=== PATIENT | male | born 1950 ===

== ENCOUNTER 2018-04-15 04:22 | Emergency (ER) | payer SELFPAY ==
[2018-04-15] MEDS ORDERED: Albuterol-Ipratrop 3 mg / 0.5 (3 ml) UD ONE ×2 (04:37→06:43)
[2018-04-15 04:55] VITALS: RESP 18
[2018-04-15] MEDS ORDERED: Magnesium Sulfate 2 gm/50 ml 2 GM/50 ML BAG ONE (05:13)
[2018-04-15] MEDS ORDERED: Albuterol-Ipratrop 3 mg / 0.5 (3 ml) UD INH STA ×4 (05:32→06:30)
[2018-04-15] MEDS ORDERED: Magnesium Sulfate 2 gm/50 ml 2 GM/50 ML BAG IVPB ONE (05:32)
[2018-04-15 05:53] LABS: VENOUS BLOOD GAS BASE EXCESS 2.5 mmol/L (0.0-2.0); VENOUS BLOOD GAS PCO2 45 mmHg (40-60); VENOUS BLOOD GAS PO2 55 mm/Hg (30-55)
[2018-04-15 05:54] LABS: BASO # 0.1 K/uL (0.0-0.2); BASO % 0.6 % (0.0-2.0); EOS # 0.1 K/uL (0.0-0.7); HEMOGLOBIN 13.9 g/dL (12.0-18.0); LYMPH # 6.6 K/uL (1.0-4.3); LYMPH % 62.1 % (20.0-40.0); MEAN CELL VOLUME 90.2 fl (80.0-94.0); MEAN CORPUSCULAR HEMOGLOBIN 30.6 pg (27.0-31.0); MEAN CORPUSCULAR HGB CONC 33.9 g/dL (33.0-37.0); MEAN PLATELET VOLUME 7.5 fl (7.2-11.7); MONO # 0.5 K/uL (0.0-0.8); MONO % 4.5 % (0.0-10.0); NEUT # 3.4 K/uL (1.8-7.0); NEUT % 31.8 % (50.0-75.0); NRBC % 0.1 % (0.0-0.0); RBC 4.54 Mil/uL (4.40-5.90); RED CELL DISTRIBUTION WIDTH 14.4 % (11.5-14.5); WHITE BLOOD COUNT 10.7 K/uL (4.8-10.8)
[2018-04-15 06:02] LABS: BLOOD UREA NITROGEN 15 mg/dl (9-20); CALCIUM 9.2 mg/dL (8.4-10.2); GFR NON-AFRICAN AMERICAN > 60
--- NOTE | 2018-04-15 06:38 | ED PDOC ---
HPI: SOB/CHF/COPD Time Seen by Provider: 04/15/18 04:31 Chief Complaint (Nursing): Shortness Of Breath Chief Complaint (Provider): Shortness Of Breath History Per: Patient History/Exam Limitations: no limitations Onset/Duration Of Symptoms: Days Current Symptoms Are (Timing): Still Present Additional Complaint(s): 68 y/o male with a PMHx of Asthma and HTN for evaluation of dyspnea and shortness of breath, onset earlier this evening. Patient reports symptoms are consistent with his asthma. Patient report he has been taking his Ventolin Inhaler with no relief. Patient is unsure of trigger. PMD: None Provided Past Medical History Reviewed: Historical Data, Nursing Documentation, Vital Signs Vital Signs: Last Vital Signs Temp 98.2 F 04/15/18 04:49 Pulse 83 04/15/18 04:49 Resp 18 04/15/18 05:19 BP 172/81 H 04/15/18 04:49 Pulse Ox 98 04/15/18 04:49 - Medical History PMH: Asthma, HTN Denies: Chronic Kidney Disease - Surgical History Surgical History: No Surg Hx - Family History Family History: States: Unknown Family Hx - Home Medications Home Medications: Ambulatory Orders Medication Instructions Recorded Albuterol HFA [Ventolin HFA 90 2 puff IH Q4H PRN 04/08/15 mcg/actuation (8 g)] Albuterol Sulfate [Albuterol 3 ml IH Q6H PRN 04/08/15 Sulfate 2.5mg/3 ml 0.083%] Multivitamin/Iron/Folic Acid 1 tab PO DAILY 04/08/15 [Centrum Complete Multivit Tab] predniSONE [predniSONE Tab] 60 mg PO DAILY #9 tab 04/15/18 - Allergies Allergies/Adverse Reactions: Allergies Allergy/AdvReac Type Severity Reaction Status Date / Time acetaminophen [From Percocet] AdvReac SHORTNESS Verified 04/15/18 05:29 OF BREATH oxycodone [From Percocet] AdvReac SHORTNESS Verified 04/15/18 05:29 OF BREATH Review of Systems ROS Statement: Except As Marked, All Systems Reviewed And Found Negative Respiratory: Positive for: Shortness of Breath, Other (Dyspnea) Physical Exam - Reviewed Nursing Documentation Reviewed: Yes Vital Signs Reviewed: Yes - Physical Exam Appears: Positive for: No Acute Distress Head Exam: Positive for: ATRAUMATIC, NORMOCEPHALIC Skin: Positive for: Normal Color, Warm, Dry Eye Exam: Positive for: Normal appearance, EOMI, PERRL Neck: Positive for: Normal, Painless ROM Cardiovascular/Chest: Positive for: Regular Rate, Rhythm. Negative for: Murmur Respiratory: Positive for: Accessory Muscle Use, Wheezing (BILATERALLY). Negative for: Respiratory Distress Gastrointestinal/Abdominal: Positive for: Normal Exam, Soft. Negative for: Tenderness Back: Positive for: Normal Inspection. Negative for: L CVA Tenderness, R CVA Tenderness Extremity: Positive for: Normal ROM. Negative for: Pedal Edema, Deformity Neurologic/Psych: Positive for: Alert, Oriented. Negative for: Motor/Sensory Deficits - Laboratory Results Result Diagrams: 04/15/18 05:43 04/15/18 05:43 - ECG O2 Sat by Pulse Oximetry: 98 (RA) Pulse Ox Interpretation: Normal Medical Decision Making Medical Decision Making: Time: 0550 A/P: 68 y/o male presenting with moderate asthma exacerbation -- VBG -- BMP -- CBC with Differentials -- CXR Portable -- Duoneb 3mg/0.5mg (3 ml) UD 3 ml INH -- Duoneb 3mg/0.5mg (3 ml) UD 3 ml INH -- Duoneb 3mg/0.5mg (3 ml) UD 3 ml INH -- Magnesium Sulfate 2 gm in 50 ml IVPB -- SOLU-Medrol 125 mg IVP -- Peak Flow Pre/Post Tx Time: 0630 -- Duoneb 3mg/0.5mg (3 ml) UD 3 ml INH -- Peak Flow Pre/Post Tx -- On re-evaluation, patient reports symptoms significantly improved. No longer wheezing, walking without SOB or difficulty, very well appearing. Advised to followup with Dr. Burk as soon as possible. Scribe Attestation: Documented by Aissatou Valles, acting as a scribe for Golden Crocker MD. Provider Scribe Attestation: All medical record entries made by the Scribe were at my direction and personally dictated by me. I have reviewed the chart and agree that the record accurately reflects my personal performance of the history, physical exam, medical decision making, and the department course for this patient. I have also personally directed, reviewed, and agree with the discharge instructions and disposition. Disposition - Clinical Impression Clinical Impression: Asthma - Disposition Referrals: Gracy Laura MD [Family Provider] - Disposition: Routine/Home Disposition Time: 07:00 Condition: STABLE Prescriptions: predniSONE [predniSONE Tab] 60 mg PO DAILY #9 tab Instructions: Asthma, Adult (DC) Forms: [facility] (Khmer)
[2018-04-15 07:22] VITALS: BP 160/72; PULSE 80; TEMP 98
--- NOTE | 2018-04-15 08:18 | RAD ---
Date of service: 04/15/2018 HISTORY: asthma exacerbatoin COMPARISON: No prior. FINDINGS: LUNGS: No active pulmonary disease. PLEURA: No significant pleural effusion identified, no pneumothorax apparent. CARDIOVASCULAR: Heart is enlarged but unchanged in size. Aorta is also stable in size. OSSEOUS STRUCTURES: No significant abnormalities. VISUALIZED UPPER ABDOMEN: Normal. OTHER FINDINGS: None. IMPRESSION: No active disease.
[2018-04-16 01:52] VITALS: O2SAT 98
== END 2018-04-15 07:22 | disposition home or self-care (01) ==
LOC: H.ER 04:22
DX: J45.901 Unspecified asthma with (acute) exacerbation (principal); I10 Essential (primary) hypertension; Z88.5 Allergy status to narcotic agent; J44.9 Chronic obstructive pulmonary disease, unspecified
CPT/HCPCS: 71045; 80048; 82803; 85025; 96374; 99284; J2930

== ENCOUNTER 2018-04-16 11:57 | Inpatient (IN) | payer OTHER ==
[2018-04-16 12:02] VITALS: BMI 23.0
[2018-04-16] MEDS ORDERED: Magnesium Sulfate 1 GM in Dextrose 5% In Water 100 ML IV STA (12:27)
[2018-04-16] MEDS ORDERED: Albuterol 0.083% Inhal Sol (2.5 mg/3 mL) UD INH STA (12:27)
--- NOTE | 2018-04-16 12:31 | CARD ---
APPROVED REPORT Date of service: 04/15/2018 EKG Measurement Heart [id number] <Conclusion> Normal sinus rhythm Possible Left atrial enlargement Left ventricular hypertrophy Abnormal ECG
[2018-04-16 12:56] LABS: ABG ALLEN TEST YES; ARTERIAL BLOOD GAS HCO3 26.1 mmol/L (21-28); ARTERIAL BLOOD GAS HEMOGLOBIN 14.7 g/dL (11.7-17.4); ARTERIAL BLOOD GAS O2 CAPACITY 19.5 mL/dL (16-24); ARTERIAL BLOOD GAS O2 CONTENT 19.3 ML/dL (15-23); ARTERIAL BLOOD GAS O2 SAT 98.8 % (95-98); ARTERIAL BLOOD GAS PCO2 39 mm/Hg (35-45); ARTERIAL BLOOD GAS PH 7.43 (7.35-7.45); ARTERIAL BLOOD GAS PO2 75 mm/Hg (80-100); ARTERIAL BLOOD GAS TCO2 27.1 mmol/L (22-28)
--- NOTE | 2018-04-16 12:56 | RAD ---
Date of service: 04/16/2018 PROCEDURE: CHEST RADIOGRAPH, 1 VIEW HISTORY: dyspnea COMPARISON: 04/15/2014. FINDINGS: LUNGS: Clear. PLEURA: No pneumothorax or pleural fluid seen. CARDIOVASCULAR: Cardiomegaly. No evidence of acute, significant cardiovascular disease. OSSEOUS STRUCTURES: No significant abnormalities. VISUALIZED UPPER ABDOMEN: Normal. OTHER FINDINGS: None. IMPRESSION: No active disease. No acute/significant interval changes.
--- NOTE | 2018-04-16 12:58 | ED PDOC ---
HPI: SOB/CHF/COPD Time Seen by Provider: 04/16/18 12:11 Chief Complaint (Nursing): Respiratory Distress Chief Complaint (Provider): Respiratory Distress History Per: Patient History/Exam Limitations: no limitations Onset/Duration Of Symptoms: Days (1) Associated Symptoms: Chest Pain. denies: Fever Additional Complaint(s): 68 years old male with history of asthma presents to ER for evaluation of difficulty breathing associated with cough, chest discomfort and wheezing onset last night. Patient reports he used his nebulizer over 10 times since last night without improvement. He states he was seen here last week for the same complaint and was discharge with nebulizers. Patient reports improvement after his last visit but symptoms returned last nights. He denies experiencing fever, nausea, vomiting or being admitted before for asthma. PMD: Aminah Burk Past Medical History Reviewed: Historical Data, Nursing Documentation, Vital Signs Vital Signs: Last Vital Signs Temp 98.7 F 04/16/18 12:02 Pulse 89 04/16/18 12:02 Resp 18 04/16/18 12:02 BP 154/91 H 04/16/18 12:02 Pulse Ox 99 04/16/18 12:02 - Medical History PMH: Asthma, HTN Denies: Chronic Kidney Disease Other PMH: Colon cancer (many years ago) - Surgical History Other surgeries: Colon surgery - Family History Family History: States: Unknown Family Hx - Social History Current smoker - smoking cessation education provided: No Alcohol: Social Drugs: Denies - Home Medications Home Medications: Ambulatory Orders Medication Instructions Recorded RX: Albuterol HFA [Ventolin HFA 90 2 puff IH Q4H PRN 04/08/15 mcg/actuation (8 g)] RX: Albuterol Sulfate [Albuterol 3 ml IH Q6H PRN 04/08/15 Sulfate 2.5mg/3 ml 0.083%] RX: Multivitamin/Iron/Folic Acid 1 tab PO DAILY 04/08/15 [Centrum Complete Multivit Tab] RX: predniSONE [predniSONE Tab] 60 mg PO DAILY #9 tab 04/15/18 - Allergies Allergies/Adverse Reactions: Allergies Allergy/AdvReac Type Severity Reaction Status Date / Time acetaminophen [From Percocet] AdvReac SHORTNESS Verified 04/15/18 05:29 OF BREATH oxycodone [From Percocet] AdvReac SHORTNESS Verified 04/15/18 05:29 OF BREATH Review of Systems ROS Statement: Except As Marked, All Systems Reviewed And Found Negative Constitutional: Negative for: Fever Cardiovascular: Positive for: Chest Pain Respiratory: Positive for: Cough (dry), Shortness of Breath Gastrointestinal: Negative for: Nausea, Vomiting Physical Exam - Reviewed Nursing Documentation Reviewed: Yes Vital Signs Reviewed: Yes - Physical Exam Appears: Positive for: Non-toxic, No Acute Distress Head Exam: Positive for: ATRAUMATIC, NORMOCEPHALIC Skin: Positive for: Warm, Dry Eye Exam: Positive for: EOMI Cardiovascular/Chest: Positive for: Regular Rate, Rhythm. Negative for: Murmur Respiratory: Positive for: Wheezing (mild expiratory). Negative for: Accessory Muscle Use (or labored breathing) Gastrointestinal/Abdominal: Positive for: Soft. Negative for: Tenderness Extremity: Positive for: Normal ROM. Negative for: Pedal Edema, Swelling Neurologic/Psych: Positive for: Alert, Oriented (x3) - Laboratory Results Result Diagrams: 04/17/18 04:15 04/17/18 04:15 - ECG ECG Rhythm: Positive for: Sinus Rhythm (normal). Negative for: ST/T Changes Rate: 81 O2 Sat by Pulse Oximetry: 99 (RA) Pulse Ox Interpretation: Normal - Progress Re-evaluation Time: 16:30 Condition: Re-examined, Improving,but remains with symptoms Medical Decision Making Medical Decision Making: Time: 1227 Initial Impression: Asthma exacerbation. Differential includes but not limited to atypical ACS, CHF. Rule out PE. Initial Plan: --ABG --EKG --BMP --BTN --Troponin I --CBC --D Dimer --Chest x-ray --Albuterol 2.5 mg INH --Magnesium Sulfate 1 gm IV --SOLU-Medrol 125 mg IVP 1255 Chest x-ray FINDINGS: LUNGS: Clear. PLEURA: No pneumothorax or pleural fluid seen. CARDIOVASCULAR: Cardiomegaly. No evidence of acute, significant cardiovascular disease. OSSEOUS STRUCTURES: No significant abnormalities. VISUALIZED UPPER ABDOMEN: Normal. OTHER FINDINGS: None. IMPRESSION: No active disease. No acute/significant interval changes. 1457 Labs show significant elevation of D Dimer. Ordered CT Angio Chest. Time: 1810 CT Chest: Findings: Visualized portions of the inferior thyroid gland appear unremarkable. The mediastinal and hilar vascular structures appear within normal limits. Mild cardiomegaly. Ascending aortic aneurysm measures approximately 5.1 x 4.9 cm (AP by transverse), previously approximately 4.9 x 5.0 cm when remeasured in similar position on prior study. There is suboptimal opacification of the pulmonary arteries precluding adequate evaluation for pulmonary embolus. Mild emphysematous changes. No focal consolidation. No pleural effusion. No pneumothorax. No suspicious pulmonary nodules measuring greater than 5 mm. Limited visualized portions of the upper abdomen; cholecystectomy clips. Nu merous hepatic hypodensities several of which appear large and cystic others which are too small to characterize or indeterminate. Mild degenerative changes of the spine. Impression: There is suboptimal opacification of the pulmonary arteries precluding adequate evaluation for pulmonary embolus. Mild cardiomegaly. Ascending aortic aneurysm measures approximately 5.1 x 4.9 cm. Mild emphysematous changes. Limited visualized portions of the upper abdomen; cholecystectomy clips. Numerou s hepatic hypodensities several of which appear large and cystic others which are too small to characterize or indeterminate. Dedicated cross-sectional imaging may be considered for further evaluation. Additional findings as above. Scribe Attestation: Documented by Kellie Marks, acting as a scribe for Vicky Garay MD. Provider Scribe Attestation: All medical record entries made by the Scribe were at my direction and persona lly dictated by me. I have reviewed the chart and agree that the record accurately reflects my personal performance of the history, physical exam, medical decision making, and the department course for this patient. I have also personally directed, reviewed, and agree with the discharge instructions and disposition. Disposition - Clinical Impression Clinical Impression: Asthma exacerbation, Elevated d-dimer - Patient ED Disposition Is Patient to be Admitted: Yes Discussed With : Isauro Nelson Doctor Will See Patient In The: Hospital Counseled Patient/Family Regarding: Studies Performed, Diagnosis - Disposition Disposition Time: 16:30 Condition: FAIR - Pt Status Changed To: Hospital Disposition Of: Inpatient - Admit Certification Admit to Inpatient:: After my assessment, the patient will require hospitalization for at least two midnights. This is because of the severity of symptoms shown, intensity of services needed, and/or the medical risk in this patient being treated as an outpatient. - POA Present On Arrival: None
[2018-04-16 14:31] LABS: BASO % 0.3 % (0.0-2.0); EOS % 0.3 % (0.0-4.0); LYMPH # 4.1 K/uL (1.0-4.3); LYMPH % 50.5 % (20.0-40.0); MEAN CELL VOLUME 90.8 fl (80.0-94.0); MEAN CORPUSCULAR HEMOGLOBIN 30.3 pg (27.0-31.0); MEAN CORPUSCULAR HGB CONC 33.3 g/dL (33.0-37.0); MEAN PLATELET VOLUME 7.9 fl (7.2-11.7); MONO # 0.2 K/uL (0.0-0.8); MONO % 2.3 % (0.0-10.0); NEUT # 3.8 K/uL (1.8-7.0); NEUT % 46.6 % (50.0-75.0); NRBC % 0.1 % (0.0-0.0); RBC 4.63 Mil/uL (4.40-5.90); RED CELL DISTRIBUTION WIDTH 14.6 % (11.5-14.5); WHITE BLOOD COUNT 8.1 K/uL (4.8-10.8)
[2018-04-16] MEDS ORDERED: Albuterol-Ipratrop 3 mg / 0.5 (3 ml) UD INH STA ×2 (14:52→20:08)
[2018-04-16 14:54] LABS: BLOOD UREA NITROGEN 15 mg/dl (9-20); CALCIUM 9.7 mg/dL (8.4-10.2); GFR NON-AFRICAN AMERICAN > 60
[2018-04-16 14:59] LABS: B-TYPE NATRIURETIC PEPTIDE 766 pg/ml (0-900)
[2018-04-16] MEDS ORDERED: Iodixanol 320 MG/ML 100 ML BOTTLE IV ONE (16:51)
[2018-04-16] MEDS ORDERED: Sodium Chloride 0.9% 50 ML IV ONE (16:52)
--- NOTE | 2018-04-16 18:12 | CT ---
Date of service: 04/16/2018 CTA chest PE protocol Indication: Chest pain Technique: Contiguous axial images were obtained through the chest with intravenous contrast enhancement. Sagittal and coronal reconstructions were generated and reviewed. This CT exam was performed using 1 or more of the following dose reduction techniques: Automated exposure control, adjustment of the MAA and/or kV according to patient size, and/or use of iterative reconstruction technique. IV contrast: 90 mL Visipaque 320 Radiation dose (DLP): 337.55 MGy-cm. Comparison: Chest x-ray performed 04/16/18 Findings: Visualized portions of the inferior thyroid gland appear unremarkable. The mediastinal and hilar vascular structures appear within normal limits. Mild cardiomegaly. Ascending aortic aneurysm measures approximately 5.1 x 4.9 cm (AP by transverse), previously approximately 4.9 x 5.0 cm when remeasured in similar position on prior study. There is suboptimal opacification of the pulmonary arteries precluding adequate evaluation for pulmonary embolus. Mild emphysematous changes. No focal consolidation. No pleural effusion. No pneumothorax. No suspicious pulmonary nodules measuring greater than 5 mm. Limited visualized portions of the upper abdomen; cholecystectomy clips. Numerous hepatic hypodensities several of which appear large and cystic others which are too small to characterize or indeterminate. Mild degenerative changes of the spine. Impression: There is suboptimal opacification of the pulmonary arteries precluding adequate evaluation for pulmonary embolus. Mild cardiomegaly. Ascending aortic aneurysm measures approximately 5.1 x 4.9 cm. Mild emphysematous changes. Limited visualized portions of the upper abdomen; cholecystectomy clips. Numerous hepatic hypodensities several of which appear large and cystic others which are too small to characterize or indeterminate. Dedicated cross-sectional imaging may be considered for further evaluation. Additional findings as above.
[2018-04-16] MEDS ORDERED: Albuterol-Ipratrop 3 mg / 0.5 (3 ml) UD ONE (20:08)
[2018-04-16] MEDS: Albuterol-Ipratrop 3 mg / 0.5 (3 ml) UD INH PRN (23:26)
[2018-04-17] MEDS ORDERED: Pneumococcal 23-Valent Vaccine IM ONE (00:48)
[2018-04-17] MEDS ORDERED: methylPREDNISolone 40 MG in Sodium Chloride 0.9% 50 ML IVPB SCH (01:00)
[2018-04-17] MEDS: MethylPREDNISolone 40 mg Vial IVP SCH ×3 (01:03→17:04)
[2018-04-17 05:30] LABS: MEAN CELL VOLUME 90.4 fl (80.0-94.0); MEAN CORPUSCULAR HEMOGLOBIN 30.1 pg (27.0-31.0); MEAN CORPUSCULAR HGB CONC 33.3 g/dL (33.0-37.0); RBC 4.65 Mil/uL (4.40-5.90); RED CELL DISTRIBUTION WIDTH 14.8 % (11.5-14.5); WHITE BLOOD COUNT 11.9 K/uL (4.8-10.8)
[2018-04-17 05:47] LABS: ALB/GLOB RATIO 1.1 (1.0-2.1); ALBUMIN 4.1 g/dL (3.5-5.0); ALT/SGPT 21 U/L (21-72); AST/SGOT 28 U/L (17-59); BLOOD UREA NITROGEN 18 mg/dl (9-20); CALCIUM 9.1 mg/dL (8.4-10.2); GFR NON-AFRICAN AMERICAN > 60
[2018-04-17] MEDS ORDERED: Influenza Vaccine (5 YR UP)/PF 60 MCG/0.5 ML SYR IM ONE (06:00)
[2018-04-17] MEDS ORDERED: Albuterol-Ipratrop 3 mg / 0.5 (3 ml) UD INH SCH ×2 (08:00→12:15)
[2018-04-17] MEDS: Albuterol-Ipratrop 3 mg / 0.5 (3 ml) UD INH PRN (09:00)
--- NOTE | 2018-04-17 10:07 | CP.PCM.HP ---
History of Present Illness - History of Present Illness History of Present Illness: 68 yo male with pmhx of asthma, HTN and colon CA admitted to [facility] yesterday for asthma exacerbation. Patient reports his symptoms of productive cough, chest discomfort with coughing and wheezing started on 04/14/18. Patient was seen in the ED on 04/15/18, received neb tx, iv steroids and sent home with po steroids. Patient reports his symptoms did not improved with neb tx at home and po steroids, therefore he came to ED on 04/16/18. Denies fever, chills, nausea, vomiting or abdominal pain. ROS: all 12 systems reviewed and negative except as mentioned in HPI PMHX: Asthma, HTN (does not take medications), colon CA in 2011 PSHX: partial colectomy due to colon CA Social hx: Former smoker, quit 27 yrs ago, used to smoke 1 PPD x 20+yrs. Social ETOH use. Denies drugs uses. Family hx: Father: CAD, Uncles: asthma. Medications: albuterol HFA, albuterol nebulizer Allergies: NKDA Present on Admission - Present on Admission Any Indicators Present on Admission: No Review of Systems - Review of Systems All systems: reviewed and no additional remarkable complaints except Past Patient History - Infectious Disease Hx of Infectious Diseases: None - Past Medical History & Family History Past Medical History?: Yes - Past Social History Smoking Status: Never Smoked - CARDIAC Hx Hypertension: Yes - PULMONARY Hx Asthma: Yes - NEUROLOGICAL Hx Neurological Disorder: No - HEENT Hx HEENT Problems: No - RENAL Hx Chronic Kidney Disease: No - ENDOCRINE/METABOLIC Hx Endocrine Disorders: No - HEMATOLOGICAL/ONCOLOGICAL Hx Blood Disorders: Yes Hx Cancer: Yes (COLON) - INTEGUMENTARY Hx Dermatological Problems: No - MUSCULOSKELETAL/RHEUMATOLOGICAL Hx Musculoskeletal Disorders: No Hx Falls: No - GASTROINTESTINAL Hx Gastrointestinal Disorders: Yes Hx Bowel Surgery: Yes - GENITOURINARY/GYNECOLOGICAL Hx Genitourinary Disorders: No - PSYCHIATRIC Hx Psychophysiologic Disorder: No Hx Substance Use: No - SURGICAL HISTORY Hx Surgeries: Yes Other/Comment: colon surgery ( 2011 ) - ANESTHESIA Hx Anesthesia: Yes Hx Anesthesia Reactions: No Hx Malignant Hyperthermia: No Meds Allergies/Adverse Reactions: Allergies Allergy/AdvReac Type Severity Reaction Status Date / Time acetaminophen [From Percocet] AdvReac SHORTNESS Verified 04/15/18 05:29 OF BREATH oxycodone [From Percocet] AdvReac SHORTNESS Verified 04/15/18 05:29 OF BREATH Physical Exam - Constitutional Appears: Non-toxic, No Acute Distress - Head Exam Head Exam: NORMAL INSPECTION - Eye Exam Eye Exam: EOMI, Normal appearance, PERRL - ENT Exam ENT Exam: Mucous Membranes Moist - Respiratory Exam Respiratory Exam: Prolonged Expiratory Phase, Wheezes (diffuse). absent: Accessory Muscle Use, Rhonchi, Respiratory Distress - Cardiovascular Exam Cardiovascular Exam: REGULAR RHYTHM, RRR, +S1, +S2 - GI/Abdominal Exam GI & Abdominal Exam: Normal Bowel Sounds, Soft. absent: Tenderness - Neurological Exam Neurological exam: Alert, Oriented x3 - Psychiatric Exam Psychiatric exam: Normal Affect, Normal Mood - Skin Skin Exam: Normal Color, Warm Results - Vital Signs Recent Vital Signs: Last Vital Signs Temp 97.8 F 04/17/18 08:30 Pulse 69 04/17/18 08:30 Resp 20 04/17/18 08:30 BP 139/65 04/17/18 08:30 Pulse Ox 96 04/17/18 08:30 - Labs Result Diagrams: 04/17/18 04:15 04/17/18 04:15 Labs: Laboratory Results - last 24 hr 04/16/18 04/16/18 04/16/18 12:50 14:22 14:22 WBC 8.1 RBC 4.63 Hgb 14.0 Hct 42.1 MCV 90.8 MCH 30.3 MCHC 33.3 RDW 14.6 H Plt Count 176 MPV 7.9 Neut % (Auto) 46.6 L Lymph % (Auto) 50.5 H Holt % (Auto) 2.3 Eos % (Auto) 0.3 Baso % (Auto) 0.3 Neut # (Auto) 3.8 Lymph # (Auto) 4.1 Holt # (Auto) 0.2 Eos # (Auto) 0.0 Baso # (Auto) 0.0 D-Dimer, Quantitative pCO2 39 pO2 75 L HCO3 26.1 ABG pH 7.43 ABG Total CO2 27.1 ABG O2 Saturation 98.8 H ABG O2 Content 19.3 ABG Base Excess 1.6 ABG Hemoglobin 14.7 ABG Carboxyhemoglobin 3.2 H POC ABG HHb (Measured) 1.1 ABG Methemoglobin 2.4 ABG O2 Capacity 19.5 Ronny Test Yes A-a O2 Difference 26.0 Hgb O2 Saturation 93.3 L FiO2 21.0 Sodium 140 Potassium 4.8 Chloride 104 Carbon Dioxide 28 Anion Gap 13 BUN 15 Creatinine 1.0 Est GFR ( Amer) > 60 Est GFR (Non-Af Amer) > 60 Random Glucose 121 H Calcium 9.7 Phosphorus Magnesium Total Bilirubin AST ALT Alkaline Phosphatase Troponin I < 0.0120 NT-Pro-B Natriuret Pep 766 Total Protein Albumin Globulin Albumin/Globulin Ratio 04/16/18 04/17/18 04/17/18 14:22 04:15 04:15 WBC 11.9 H RBC 4.65 Hgb 14.0 Hct 42.0 MCV 90.4 MCH 30.1 MCHC 33.3 RDW 14.8 H Plt Count 177 MPV Neut % (Auto) Lymph % (Auto) Holt % (Auto) Eos % (Auto) Baso % (Auto) Neut # (Auto) Lymph # (Auto) Holt # (Auto) Eos # (Auto) Baso # (Auto) D-Dimer, Quantitative 329 H pCO2 pO2 HCO3 ABG pH ABG Total CO2 ABG O2 Saturation ABG O2 Content ABG Base Excess ABG Hemoglobin ABG Carboxyhemoglobin POC ABG HHb (Measured) ABG Methemoglobin ABG O2 Capacity Ronny Test A-a O2 Difference Hgb O2 Saturation FiO2 Sodium 141 Potassium 4.4 Chloride 105 Carbon Dioxide 27 Anion Gap 13 BUN 18 Creatinine 1.0 Est GFR ( Amer) > 60 Est GFR (Non-Af Amer) > 60 Random Glucose 111 H Calcium 9.1 Phosphorus 4.0 Magnesium 2.1 Total Bilirubin 0.5 AST 28 ALT 21 Alkaline Phosphatase 68 Troponin I NT-Pro-B Natriuret Pep Total Protein 7.8 Albumin 4.1 Globulin 3.6 Albumin/Globulin Ratio 1.1 Assessment & Plan (1) Asthma exacerbation Status: Acute (2) Ascending aortic aneurysm Status: Chronic Comment: Chest CT on 04/16/18 shows Ascending aortic aneurysm measures approximately 5.1 x 4.[address] on 04/09/15 showed ascending arotic aneurysm measuring 4.9 x 5.1 cm. -Stable. -f/u outpatient - Assessment and Plan (Free Text) Assessment: 68 yo male pmhx asthma, HTN and colon CA presented to ED with complaints of productive cough, wheezing and chest tightness for 2 days. Patient is admitted yesterday for asthma exacerbations. Plan: c/w duo neb c/w NC oxygen c/w IV solumedrol 40 mg ivp q8 Start ceftriaxone and azithromycin monitor respiratory status f/u AM labs, sputum cx Patient seen, examined and plan discussed with Dr. Omar Nunez, pgy-2
[2018-04-17] MEDS ORDERED: Sodium Chloride 3% for Inhalation 4 ML VIAL.NEB IH PRN (10:30)
[2018-04-17] MEDS: Pantoprazole 40 mg EC Tab PO SCH (11:27)
[2018-04-17] MEDS: Azithromycin 500 MG in Sodium Chloride 0.9% 250 ML IVPB SCH (12:19)
[2018-04-17] MEDS: Albuterol-Ipratrop 3 mg / 0.5 (3 ml) UD INH SCH ×3 (15:35→23:12)
[2018-04-18] MEDS: MethylPREDNISolone 40 mg Vial IVP SCH ×4 (01:11→20:42)
[2018-04-18] MEDS: Albuterol-Ipratrop 3 mg / 0.5 (3 ml) UD INH SCH ×6 (04:13→23:14)
[2018-04-18 05:26] LABS: HEMOGLOBIN 14.5 g/dL (12.0-18.0); MEAN CELL VOLUME 90.7 fl (80.0-94.0); MEAN CORPUSCULAR HEMOGLOBIN 30.6 pg (27.0-31.0); MEAN CORPUSCULAR HGB CONC 33.7 g/dL (33.0-37.0); RBC 4.73 Mil/uL (4.40-5.90); RED CELL DISTRIBUTION WIDTH 14.6 % (11.5-14.5)
[2018-04-18 05:49] LABS: BLOOD UREA NITROGEN 25 mg/dl (9-20); CALCIUM 9.3 mg/dL (8.4-10.2); GFR NON-AFRICAN AMERICAN > 60
[2018-04-18] MEDS ORDERED: Influenza Vaccine 60 MCG/0.5 ML SYR (3 yr & up) IM ONE (07:10)
[2018-04-18] MEDS: Pantoprazole 40 mg EC Tab PO SCH (08:37)
[2018-04-18] MEDS: Azithromycin 500 MG in Sodium Chloride 0.9% 250 ML IVPB SCH (08:38)
--- NOTE | 2018-04-18 09:54 | CP.PCM.PN ---
Subjective - Date & Time of Evaluation Date of Evaluation: 04/18/18 Time of Evaluation: 07:15 - Subjective Subjective: Patient seen and examined with Dr. Berman this morning. Patient reports his symptoms of wheezing and cough have improved. No acute overnight events. Denies any fever, chills, chest pain, nausea,vomiting or abdominal pain. Afebrile with stable vitals. Objective - Vital Signs/Intake and Output Vital Signs (last 24 hours): Temp Pulse Resp BP Pulse Ox 97.7 F 69 18 133/68 98 04/18/18 09:29 04/18/18 09:29 04/18/18 09:29 04/18/18 09:29 04/18/18 09:29 - Medications Medications: Current Medications Albuterol/Ipratropium (Duoneb 3 Mg/0.5 Mg (3 Ml) Ud) 3 ml INH RQ6 PRN PRN Reason: Shortness of Breath Last Admin: 04/17/18 09:00 Dose: 3 ml Albuterol/Ipratropium (Duoneb 3 Mg/0.5 Mg (3 Ml) Ud) 3 ml INH RQ4 CORINNE Last Admin: 04/18/18 07:35 Dose: 3 ml Guaifenesin/Dextromethorphan (Mucinex-Dm 600-30 Mg) 1 tab PO BID CORINNE Azithromycin 500 mg/ Sodium (Chloride) 250 mls @ 250 mls/hr IVPB DAILY CORINNE; Pro tocol Last Admin: 04/18/18 08:38 Dose: 250 mls/hr Ceftriaxone Sodium 1 gm/ (Sodium Chloride) 100 mls @ 100 mls/hr IVPB DAILY CORINNE; Protocol Last Admin: 04/18/18 08:38 Dose: 100 mls/hr Lisinopril (Zestril) 10 mg PO DAILY CORINNE Last Admin: 04/18/18 08:37 Dose: 10 mg Methylprednisolone (Solu-Medrol) 20 mg IVP Q12 CORINNE Montelukast Sodium (Singulair) 10 mg PO DAILY [facility]INNE Pantoprazole Sodium (Protonix Ec Tab) 40 mg PO DAILY [facility] Last Admin: 04/18/18 08:37 Dose: 40 mg Prednisone (Prednisone Tab) 40 mg PO DAILY [facility] Fluticasone/Salmeterol (Advair Diskus 250/50) 1 puff IH Q12 CORINNE Tiotropium [place] (Spiriva) 18 mcg INH DAILY CORINNE - Labs Labs: 04/18/18 05:16 04/18/18 05:16 - Additional Findings Additional findings: - Constitutional Appears: Non-toxic, No Acute Distress - Head Exam Head Exam: NORMAL INSPECTION - Eye Exam Eye Exam: EOMI, Normal appearance, PERRL - ENT Exam ENT Exam: Mucous Membranes Moist - Respiratory Exam Respiratory Exam: Prolonged Expiratory Phase, Mild expiratory Wheezes. absent: Accessory Muscle Use, Rhonchi, Respiratory Distress - Cardiovascular Exam Cardiovascular Exam: REGULAR RHYTHM, RRR, +S1, +S2 - GI/Abdominal Exam GI & Abdominal Exam: Normal Bowel Sounds, Soft. absent: Tenderness - Neurological Exam Neurological exam: Alert, Oriented x3 - Psychiatric Exam Psychiatric exam: Normal Affect, Normal Mood - Skin Skin Exam: Normal Color, Warm Assessment and Plan (1) Asthma exacerbation Status: Acute (2) Ascending aortic aneurysm Status: Chronic (3) COPD exacerbation Status: Acute - Assessment and Plan (Free Text) Assessment: 68 yo male pmhx asthma, HTN and colon CA presented to ED with complaints of productive cough, wheezing and chest tightness for 2 days. Patient is admitted yesterday for asthma exacerbations and possible COPD exacerbation. Plan: c/w duo neb c/w NC oxygen Decrease IV solumedrol to 20 mg ivp q12 Start advair, spiriva and singulair c/w ceftriaxone and azithromycin monitor respiratory status f/u AM labs, sputum cx Patient seen, examined and plan discussed with Dr. Antonella Nunez, pgy-2
[2018-04-18] MEDS: Fluticasone-Salmeterol 250-50mcg Diskus IH SCH ×2 (11:01→20:41)
[2018-04-18] MEDS: Tiotropium 18 mcg Cap For Inhalation INH SCH (11:02)
[2018-04-18] MEDS: guaiFENesin-DM 600-30 mg ER Tab PO SCH ×2 (11:05→16:26)
[2018-04-19 00:32] VITALS: RESP 18
[2018-04-19] MEDS: Albuterol-Ipratrop 3 mg / 0.5 (3 ml) UD INH SCH ×3 (05:00→11:26)
[2018-04-19] MEDS: Fluticasone-Salmeterol 250-50mcg Diskus IH SCH (08:58)
[2018-04-19] MEDS: guaiFENesin-DM 600-30 mg ER Tab PO SCH (08:59)
[2018-04-19] MEDS: Pantoprazole 40 mg EC Tab PO SCH (09:00)
[2018-04-19] MEDS: Tiotropium 18 mcg Cap For Inhalation INH SCH (09:01)
[2018-04-19] MEDS: Azithromycin 500 MG in Sodium Chloride 0.9% 250 ML IVPB SCH (09:13)
--- NOTE | 2018-04-19 11:35 | CP.PCM.PCO ---
Assessment & Plan - Assessment and Plan (Free Text) Assessment: pt. feels well today, denies fever, chills, sob, cough or cp lungs CTA pt. cleared for d/c to home today by Rx for all meds provided pt. to f/u with in 1 week
[2018-04-19 12:13] VITALS: BP 136/77; PULSE 89; TEMP 97.8; O2SAT 97
--- NOTE | 2018-04-19 13:30 | CP.PCM.DIS ---
Provider - Provider Date of Admission: 04/16/18 19:03 Attending physician: Blaise Berman MD Time Spent in preparation of Discharge (in minutes): 30 Diagnosis - Discharge Diagnosis (1) Asthma exacerbation Status: Acute (2) Ascending aortic aneurysm Status: Chronic (3) COPD exacerbation Status: Acute Hospital Course - Lab Results Lab Results: Micro Results 04/17/18 09:52 Sputum Gram Stain - Final Most Recent Lab Values WBC 11.0 K/uL (4.8-10.8) H 04/18/18 05:16 RBC 4.73 Mil/uL (4.40-5.90) 04/18/18 05:16 Hgb 14.5 g/dL (12.0-18.0) 04/18/18 05:16 Hct 42.9 % (35.0-51.0) 04/18/18 05:16 MCV 90.7 fl (80.0-94.0) 04/18/18 05:16 MCH 30.6 pg (27.0-31.0) 04/18/18 05:16 MCHC 33.7 g/dL (33.0-37.0) 04/18/18 05:16 RDW 14.6 % (11.5-14.5) H 04/18/18 05:16 Plt Count 185 K/uL (130-400) 04/18/18 05:16 MPV 7.9 fl (7.2-11.7) 04/16/18 14:22 Neut % (Auto) 46.6 % (50.0-75.0) L 04/16/18 14:22 Lymph % (Auto) 50.5 % (20.0-40.0) H 04/16/18 14:22 [place] % (Auto) 2.3 % (0.0-10.0) 04/16/18 14:22 Eos % (Auto) 0.3 % (0.0-4.0) 04/16/18 14:22 Baso % (Auto) 0.3 % (0.0-2.0) 04/16/18 14:22 Neut # (Auto) 3.8 K/uL (1.8-7.0) 04/16/18 14:22 Lymph # (Auto) 4.1 K/uL (1.0-4.3) 04/16/18 14:22 [place] # (Auto) 0.2 K/uL (0.0-0.8) 04/16/18 14:22 Eos # (Auto) 0.0 K/uL (0.0-0.7) 04/16/18 14:22 Baso # (Auto) 0.0 K/uL (0.0-0.2) 04/16/18 14:22 D-Dimer, Quantitative 329 ng/mlDDU (0-230) H 04/16/18 14:22 pCO2 39 mm/Hg (35-45) 04/16/18 12:50 pO2 75 mm/Hg (80-100) L 04/16/18 12:50 HCO3 26.1 mmol/L (21-28) 04/16/18 12:50 ABG pH 7.43 (7.35-7.45) 04/16/18 12:50 ABG Total CO2 27.1 mmol/L (22-28) 04/16/18 12:50 ABG O2 Saturation 98.8 % (95-98) H 04/16/18 12:50 ABG O2 Content 19.3 ML/dL (15-23) 04/16/18 12:50 ABG Base Excess 1.6 mmol/L (-2.0-3.0) 04/16/18 12:50 ABG Hemoglobin 14.7 g/dL (11.7-17.4) 04/16/18 12:50 ABG Carboxyhemoglobin 3.2 % (0.5-1.5) H 04/16/18 12:50 POC ABG HHb (Measured) 1.1 % (0.0-5.0) 04/16/18 12:50 ABG Methemoglobin 2.4 % (0.0-3.0) 04/16/18 12:50 ABG O2 Capacity 19.5 mL/dL (16-24) 04/16/18 12:50 Ronny Test Yes 04/16/18 12:50 A-a O2 Difference 26.0 mm/Hg 04/16/18 12:50 Hgb O2 Saturation 93.3 % (95.0-98.0) L 04/16/18 12:50 FiO2 21.0 % 04/16/18 12:50 Sodium 140 mmol/l (132-148) 04/18/18 05:16 Potassium 4.5 MMOL/L (3.6-5.0) 04/18/18 05:16 Chloride 104 mmol/L (98-107) 04/18/18 05:16 Carbon Dioxide 29 mmol/L (22-30) 04/18/18 05:16 Anion Gap 12 (10-20) 04/18/18 05:16 BUN 25 mg/dl (9-20) H 04/18/18 05:16 Creatinine 1.1 mg/dl (0.8-1.5) 04/18/18 05:16 Est GFR ( Amer) > 60 04/18/18 05:16 Est GFR (Non-Af Amer) > 60 04/18/18 05:16 Random Glucose 111 mg/dL (75-110) H 04/18/18 05:16 Calcium 9.3 mg/dL (8.4-10.2) 04/18/18 05:16 Phosphorus 4.0 mg/dl (2.5-4.5) 04/17/18 04:15 Magnesium 2.1 MG/DL (1.6-2.3) 04/17/18 04:15 Total Bilirubin 0.5 mg/dl (0.2-1.3) 04/17/18 04:15 AST 28 U/L (17-59) 04/17/18 04:15 ALT 21 U/L (21-72) 04/17/18 04:15 Alkaline Phosphatase 68 U/L (38-126) 04/17/18 04:15 Troponin I < 0.0120 ng/mL (0.00-0.120) 04/16/18 14:22 NT-Pro-B Natriuret Pep 766 pg/ml (0-900) 04/16/18 14:22 Total Protein 7.8 G/DL (6.3-8.2) 04/17/18 04:15 Albumin 4.1 g/dL (3.5-5.0) 04/17/18 04:15 Globulin 3.6 gm/dL (2.2-3.9) 04/17/18 04:15 Albumin/Globulin Ratio 1.1 (1.0-2.1) 04/17/18 04:15 - Hospital Course Hospital Course: 68 yo male with pmhx of asthma, HTN and colon CA admitted to [facility] yesterday for asthma exacerbation. Patient reports his symptoms of productive cough, chest discomfort with coughing and wheezing started on 04/14/18. Patient was admitted for asthma exacerbation and COPD exacerbation Patient was treated with azithromycin, ceftriaxone, methylprednisolone and duoneb. Patients sputum cx grew few gram positive cocci in chains and few gram positive bacilli. Patient has been afebrile and wheezing improved. Patient is hemodynamically stable to discharge home. Advised to f/u with PMD in 2-3 days. Discharge Exam - Head Exam Head Exam: ATRAUMATIC, NORMOCEPHALIC - Eye Exam Eye Exam: EOMI, Normal appearance - ENT Exam ENT Exam: Mucous Membranes Moist - Respiratory Exam Respiratory Exam: Wheezes (mild expiratory scattered wheezing), NORMAL BREATHING PATTERN. absent: Accessory Muscle Use, Respiratory Distress - Cardiovascular Exam Cardiovascular Exam: REGULAR RHYTHM, +S1, +S2 - GI/Abdominal Exam GI & Abdominal Exam: Normal Bowel Sounds, Soft. absent: Tenderness - Neurological Exam Neurological exam: Alert, Oriented x3 - Psychiatric Exam Psychiatric exam: Normal Affect, Normal Mood - Skin Skin Exam: Normal Color, Warm Discharge Plan - Discharge Medications Prescriptions: Azithromycin [Zithromax] 500 mg PO DAILY #5 tab Fluticasone/Salmeterol 250/50 [Advair Diskus 250/50] 1 puff IH Q12 #60 puff guaiFENesin/Dextromethorphan [Mucinex-DM 600-30 mg] 1 tab PO BID #14 tab Lisinopril [Zestril] 10 mg PO DAILY #30 tab Montelukast [Singulair] 10 mg PO DAILY #30 tab Pantoprazole [Protonix EC Tab] 40 mg PO DAILY #30 ect predniSONE [predniSONE Tab] 20 mg PO DAILY #20 tab Tiotropium [Spiriva] 18 mcg INH DAILY #30 cap - Follow Up Plan Condition: FAIR Disposition: HOME/ ROUTINE Instructions: Asthma, Adult (DC), Exacerbation of COPD (DC) Additional Instructions: follow up with pmd in 1 week Referrals: Blaise Berman MD [Staff Provider] -
== END 2018-04-19 14:17 | disposition home or self-care (01) | DRG 96 ==
LOC: H.ER 11:57 → H.ERHOLD 19:03 → H.TEL 22:53
PROVIDERS: ADMIT Family Medicine; ATTEND Family Medicine
DX: J45.901 Unspecified asthma with (acute) exacerbation (principal); J44.1 Chronic obstructive pulmonary disease with (acute) exacerbation; I71.2 Thoracic aortic aneurysm, without rupture; Z85.038 Personal history of other malignant neoplasm of large intestine; Z87.891 Personal history of nicotine dependence; R79.1 Abnormal coagulation profile

== ENCOUNTER 2018-04-30 11:14 | Emergency (ER) | payer OTHER ==
[2018-04-30 11:32] VITALS: BP 122/69; PULSE 83; TEMP 97.2; O2SAT 98
[2018-04-30 11:33] VITALS: BMI 23.3
[2018-04-30 11:46] VITALS: RESP 18
[2018-04-30] MEDS ORDERED: PROPARACAINE/FLUORESCEIN SOD 100 DROP/5 ML BOTTLE OS STA (13:03)
[2018-04-30] MEDS ORDERED: PROPARACAINE/FLUORESCEIN SOD 100 DROP/5 ML BOTTLE ONE (13:05)
--- NOTE | 2018-04-30 13:14 | ED PDOC ---
HPI: Eye Injury/Pain Time Seen by Provider: 04/30/18 12:15 Chief Complaint (Nursing): Eye Problem Chief Complaint (Provider): Pain, watery left eye, no change in vision History Per: Patient History/Exam Limitations: no limitations Onset/Duration Of Symptoms: Hrs Current Symptoms Are (Timing): Still Present Quality: Dull (2/10) Associated Symptoms: Pain, Itching, Discharge From Eye. denies: Decreased Vision, Swelling, FB Sensation Additional Complaint(s): 68 yo male with history of asthma presents for evaluation of left eye irritation, pain 2/10 and clear drainage. Pt states it began last night gradually and it made it difficult to sleep. Pt denies change in vision. Pt denies photophobia. Pt did not take anything for symptoms. Past Medical History Reviewed: Historical Data, Nursing Documentation, Vital Signs Vital Signs: Last Vital Signs Temp 97.2 F L 04/30/18 11:42 Pulse 83 04/30/18 11:42 Resp 18 04/30/18 11:42 BP 122/69 04/30/18 11:42 Pulse Ox 98 04/30/18 11:42 - Medical History PMH: Asthma, HTN Denies: Chronic Kidney Disease - Surgical History Surgical History: No Surg Hx - Family History Family History: States: Unknown Family Hx - Living Arrangements Living Arrangements: With Family - Social History Current smoker - smoking cessation education provided: No - Home Medications Home Medications: Ambulatory Orders Medication Instructions Recorded Albuterol HFA [Ventolin HFA 90 2 puff IH Q4H PRN 04/08/15 mcg/actuation (8 g)] Albuterol Sulfate [Albuterol 3 ml IH Q6H PRN 04/08/15 Sulfate 2.5mg/3 ml 0.083%] Multivitamin/Iron/Folic Acid 1 tab PO DAILY 04/08/15 [Centrum Complete Multivit Tab] Azithromycin [Zithromax] 500 mg PO DAILY #5 tab 04/19/18 Fluticasone/Salmeterol 250/50 1 puff IH Q12 #60 puff 04/19/18 [Advair Diskus 250/50] Lisinopril [Zestril] 10 mg PO DAILY #30 tab 04/19/18 Montelukast [Singulair] 10 mg PO DAILY #30 tab 04/19/18 Pantoprazole [Protonix EC Tab] 40 mg PO DAILY #30 ect 04/19/18 Tiotropium [Spiriva] 18 mcg INH DAILY #30 cap 04/19/18 guaiFENesin/Dextromethorphan 1 tab PO BID #14 tab 04/19/18 [Mucinex-DM 600-30 mg] predniSONE [predniSONE Tab] 20 mg PO DAILY #20 tab 04/19/18 Polymyxin/Trimethoprim Sulfate 1 drop XX Q6H 10 Days bottle 04/30/18 [Polytrim Ophth Soln] - Allergies Allergies/Adverse Reactions: Allergies Allergy/AdvReac Type Severity Reaction Status Date / Time acetaminophen [From Percocet] AdvReac SHORTNESS Verified 04/30/18 12:00 OF BREATH oxycodone [From Percocet] AdvReac SHORTNESS Verified 04/30/18 12:00 OF BREATH Review of Systems ROS Statement: Except As Marked, All Systems Reviewed And Found Negative Constitutional: Negative for: Fever, Chills Eyes: Positive for: Pain, Conjunctivae Inflammation, Eyelid Inflammation. Negative for: Vision Change Neurological: Negative for: Weakness, Numbness, Altered Mental Status, Headache, Dizziness Physical Exam - Reviewed Nursing Documentation Reviewed: Yes Vital Signs Reviewed: Yes - Physical Exam Appears: Positive for: Well, Non-toxic, No Acute Distress Head Exam: Positive for: ATRAUMATIC, NORMAL INSPECTION, NORMOCEPHALIC Skin: Positive for: Normal Color, Warm, DRY Eye Exam: Positive for: EOMI, PERRL, Conjunctival injection, Other ((-) abnormalities seen under fluoro). Negative for: Normal appearance, Periorbital swelling, Periorbital tenderness, Scleral icterus ENT: Positive for: Normal ENT Inspection Neck: Positive for: Normal, Painless ROM Cardiovascular/Chest: Positive for: Regular Rate, Rhythm Respiratory: Positive for: CNT, Normal Breath Sounds Gastrointestinal/Abdominal: Positive for: Normal Exam, Soft Back: Positive for: Normal Inspection Extremity: Positive for: Normal ROM Neurologic/Psych: Positive for: Alert, Oriented - ECG O2 Sat by Pulse Oximetry: 98 Pulse Ox Interpretation: Normal Disposition - Clinical Impression Clinical Impression: Conjunctivitis - Disposition Referrals: Ramesh Singh MD [Staff Provider] - Disposition Time: 13:26 Condition: STABLE Prescriptions: Polymyxin/Trimethoprim Sulfate [Polytrim Ophth Soln] 1 drop XX Q6H 10 Days bottle Instructions: Conjunctivitis ([place]) Forms: [facility] ([place])
== END 2018-04-30 13:28 | disposition home or self-care (01) ==
LOC: H.ER 11:14
DX: H10.9 Unspecified conjunctivitis (principal); I10 Essential (primary) hypertension; J45.909 Unspecified asthma, uncomplicated; Z88.5 Allergy status to narcotic agent